=== PATIENT | female | born 2000 | race Hispanic/Latino ===

== ENCOUNTER 2020-02-07 03:34 | Inpatient (IN) | payer OTHER ==
[2020-02-07] MEDS ORDERED: Fentanyl 100 MCG/2 ML VIAL ONE ×2 (03:45→03:55)
[2020-02-07] MEDS ORDERED: Midazolam HCl 5 mg/ml Vial ONE ×3 (03:55→06:01)
[2020-02-07 03:56] LABS: INR-International Normal Ratio 1.4; PTT 37.4 sec (22.9-36.1); Prothrombin Time 17.3 sec (12.0-14.7)
[2020-02-07 03:59] LABS: BHCG - Serum Negative (NEGATIVE); Pregs Control Background? CLEAR/WHITE (CLR/WHITE); Pregs Control Bar Appear? YES (CONTROL BAR)
[2020-02-07 04:03] LABS: ALT (SGPT) 230 U/L (8-55); AST (SGOT) 227 U/L (5-30); Albumin 4.1 g/dL (3.5-5.0); Alkaline Phosphatase 80 U/L (40-100); Anion Gap 27 mmol/L (10-20); BUN (Urea Nitrogen) 10 mg/dL (8.4-21.0); Bilirubin, Total Less than 0.2 mg/dL (0.2-1.2); Calc. Creatinine Clearance 0 mL/min (70-130); Carbon Dioxide 14 mmol/L (22-29); Chloride 103 mmol/L (98-107); Estimated GFR-MDRD 51; Globulin 3.1 g/dL (2.4-3.5); Protein, Total 7.2 g/dL (6.0-8.3); Sodium 141 mmol/L (136-145)
[2020-02-07] MEDS ORDERED: Succinylcholine Chloride 20 MG/ML 10 ml SYRINGE FS ONE ×2 (04:05→06:09)
[2020-02-07 04:08] LABS: Hemoglobin 14.3 g/dL (12.0-16.0); Mean Corpuscular HGB CONC 32.8 g/dL (32.0-36.0); Mean Corpuscular Hemoglobin 28.1 pg (25.0-35.0); Mean Corpuscular Volume 85.8 fL (78.0-98.0); Mean Platelet Volume 8.4 fL (7.4-10.4); Platelet Count 303 thou/uL (130-400); RBC Distribution Width 12.5 % (11.5-14.5); Red Blood Cell (RBC) Count 5.09 mill/uL (4.00-5.20); White Blood Cell (WBC) Count 20.5 thou/uL (4.8-10.8)
[2020-02-07 04:13] LABS: Glucose 270 mg/dL (70-105)
[2020-02-07] MEDS ORDERED: fentaNYL Citrate/PF 2,000 MCG in Sodium Chloride 0.9% 60 ML IV SCH ×2 (04:15→05:00)
[2020-02-07 04:19] LABS: Acetaminophen Less than 6.0 mcg/mL (10.0-30.0); Alcohol 160 mg/dL (Less than 10); Salicylate Less than 8.0 mg/dL (15.0-30.0)
[2020-02-07 04:24] LABS: Band 7 % (5-11); Lymphocytes 38 % (28-48); MDiff Complete? YES; Monocytes 5 % (0-4); Neutrophil 45 % (31-61); Platelet Morphology Comment Appears Adequate; RBC Morphology Normal; Reactive Lymphocytes 5 % (0-10)
[2020-02-07 04:33] LABS: Bilirubin Negative (Negative); Blood, Urine 2+ (Negative); Clarity Clear (Clear); Glucose, Urine (Dipstick) 200 mg/dL (Negative); Ketone, Urine Negative (Negative); Leukocyte Negative Leu/uL (Negative); Nitrite Negative (Negative); Protein, Urine (Dipstick) 100 mg/dL (Neg-Trace); RBC/HPF 0-3 HPF (0-3); Specific Gravity, Urine 1.005 (1.002-1.036); Squamous Epithelial 0-3 HPF (0-3); Urobilinogen Normal mg/dL (Less than 2); pH, Urine 6.5 (5.0-9.0)
[2020-02-07 04:34] LABS: Bacteria/HPF 1+ HPF (None Seen)
[2020-02-07 04:35] LABS: Pregnancy Test - Urine (BHCG) Negative (Negative); Pregu Control Background? CLEAR/WHITE (CLR/WHITE); Pregu Control Bar Appear? YES (CONTROL BAR); Specific Gravity 1.005 (1.002-1.036)
[2020-02-07] MEDS ORDERED: Dextrose 50% Abboject 50 ML SYRINGE SLOW IVP PRN (04:41)
[2020-02-07] MEDS ORDERED: Ondansetron PF 4 MG/2 ML Vial IVP PRN (04:41)
[2020-02-07] MEDS ORDERED: TETANUS AND DIPHTHERIA TOX/PF 0.5 ML DISP.SYRIN IM ONE (04:41)
[2020-02-07] MEDS ORDERED: Dextrose 5% in Water 1,000 ML IV PRN (04:41)
[2020-02-07] MEDS ORDERED: Sodium Chloride 0.9% 1,000 ML IV SCH ×2 (04:45→08:00)
[2020-02-07] MEDS ORDERED: Ventilator Sedation Protocol 1 EACH FS ONE (04:46)
[2020-02-07 04:54] LABS: Amphetamine Not Detected (NotDetected); Barbiturates Screen Not Detected (NotDetected); Benzodiazepine Screen Not Detected (NotDetected); Cocaine Metabolite Screen Not Detected (NotDetected); Medtox Control Line Valid? VALID (VALID); Medtox Reader # READER 4; Methadone Not Detected (NotDetected); Methamphetamine Not Detected (NotDetected); Opiate Screen Not Detected (NotDetected); Oxycodone Screen Not Detected (NotDetected); Phencyclidine (PCP) Not Detected (NotDetected); THC/Cannabinoid Screen Detected (NotDetected); Tricyclic Screen Not Detected (NotDetected)
[2020-02-07 04:57] LABS: Actual Bicarbonate (HCO3a) 12.9 mEq/L (22-28); Analyzer IN Cardio ER; Base Excess (BEa) -15.1 mEq/L (-2.0 to +3.0); Calcium, Ionized (arterial) 1.03 mmol/L (1.12-1.30); Carboxyhemoglobin (COHb) 0.3 gm% (0.0-3.0); O2 Tension (PaO2), arterial 90.2 mmHg (80.0-100.0); Potassium - ABG Lab 4.41 mmol/L (3.70-5.30)
[2020-02-07 04:58] LABS: pH, Arterial 7.15 (7.35-7.45)
[2020-02-07] MEDS ORDERED: Boostrix 0.5 ML VIAL ONE (04:58)
[2020-02-07 04:59] LABS: Hemoglobin (Hb) 20.8 g/dL (11.4-15.4)
[2020-02-07 05:00] LABS: Puncture Site RR
[2020-02-07] MEDS ORDERED: Lorazepam 2 MG/ML VIAL SLOW IVP PRN (05:00)
[2020-02-07] MEDS ORDERED: Morphine 2 MG/ML VIAL SLOW IVP PRN (05:00)
[2020-02-07] MEDS ORDERED: Propofol BOLUS 1,000 MG/100 ML VIAL IV PRN (05:00)
[2020-02-07] MEDS ORDERED: Fentanyl BOLUS 250 ML IVPB PRN (05:00)
[2020-02-07] MEDS ORDERED: Propofol 1,000 MG/100 ML VIAL IV ONE (05:04)
[2020-02-07 05:31] LABS: Phosphorus 7.3 mg/dL (2.3-4.7)
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
[2020-02-07] MEDS ORDERED: Calcium Chloride 1 GM/10 ML Abboject SYRINGE ONE (06:26)
[2020-02-07] MEDS ORDERED: Potassium Chloride 40 MEQ in Premix Bag 1 BAG IVPB SCH (06:30)
[2020-02-07 07:08] LABS: Lactic Acid 5.8 mmol/L (0.5-2.2)
[2020-02-07 07:10] LABS: Anion Gap 20 mmol/L (10-20); BUN (Urea Nitrogen) 8 mg/dL (8.4-21.0); CK (CPK) 1164 U/L (29-168); Calc. Creatinine Clearance 0 mL/min (70-130); Calcium 7.8 mg/dL (7.8-10.44); Carbon Dioxide 14 mmol/L (22-29); Chloride 110 mmol/L (98-107); Estimated GFR-MDRD 75; Glucose 212 mg/dL (70-105); Magnesium 1.6 mg/dL (1.7-2.2); Phosphorus 3.5 mg/dL (2.3-4.7); Potassium 3.8 mmol/L (3.5-5.1); Sodium 140 mmol/L (136-145)
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
[2020-02-07 07:15] VITALS: BMI 39.7
[2020-02-07 07:17] LABS: Hemoglobin 20.2 g/dL (12.0-16.0); Mean Corpuscular HGB CONC 32.2 g/dL (32.0-36.0); Mean Corpuscular Hemoglobin 28.4 pg (25.0-35.0); Mean Platelet Volume 8.3 fL (7.4-10.4); Platelet Count 237 thou/uL (130-400); RBC Distribution Width 14.3 % (11.5-14.5); Red Blood Cell (RBC) Count 7.14 mill/uL (4.00-5.20); White Blood Cell (WBC) Count 23.2 thou/uL (4.8-10.8)
[2020-02-07 07:24] LABS: Actual Bicarbonate (HCO3a) 14.7 mEq/L (22-28); Analyzer IN Cardio ER; Base Excess (BEa) -14.2 mEq/L (-2.0 to +3.0); CO2 Tension 44.6 mmHg (35.0-45.0); Calcium, Ionized (arterial) 1.06 mmol/L (1.12-1.30); Carboxyhemoglobin (COHb) 0.3 gm% (0.0-3.0); O2 Tension (PaO2), arterial 67.3 mmHg (80.0-100.0); Potassium - ABG Lab 3.87 mmol/L (3.70-5.30)
[2020-02-07 07:25] LABS: Puncture Site ALINE; pH, Arterial 7.14 (7.35-7.45)
[2020-02-07] MEDS ORDERED: Calcium Chloride 1 GM/10 ML Abboject SYRINGE IVP SCH (07:30)
[2020-02-07] MEDS ORDERED: Sodium Bicarb 50 MEQ/50 ML Abboject 8.4% SYRINGE IVP SCH ×2 (07:30→23:59)
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
[2020-02-07 07:51] LABS: Band 31 % (5-11); Lymphocytes 9 % (28-48); MDiff Complete? YES; Monocytes 4 % (0-4); Neutrophil 54 % (31-61); Platelet Morphology Comment Appears Adequate; Reactive Lymphocytes 2 % (0-10); Vacuoles SLIGHT
[2020-02-07] MEDS ORDERED: Furosemide 40 MG/4 ML VIAL SLOW IVP SCH ×2 (08:00)
[2020-02-07] MEDS ORDERED: Midazolam HCl 2 mg/2 ml Vial SLOW IVP SCH ×2 (08:00)
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
--- NOTE | 2020-02-07 08:06 | RAD ---
EXAM: Single view of the abdomen HISTORY: OG tube placement COMPARISON: None FINDINGS: Single view of the upper abdomen shows a nonspecific, nonobstructive bowel gas pattern. An OG tube is seen with its tip in the left upper quadrant of the abdomen, likely in the stomach. No suspicious calcifications are seen. The bones are unremarkable. Diffuse hazy opacities are seen in the lungs. IMPRESSION: OG tube located in the stomach
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
[2020-02-07] MEDS: Propofol 1,000 MG/100 ML VIAL IV PRN ×3 (08:17→17:43)
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
[2020-02-07] MEDS: Magnesium 2 GM/50 ML 2 GM in Premix Bag 1 BAG IVPB SCH ×2 (08:30→10:59)
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
[2020-02-07] MEDS ORDERED: Sterile Water 10 ML ONE (10:00)
[2020-02-07] MEDS ORDERED: Vecuronium 10 MG VIAL IVP SCH (10:00)
--- NOTE | 2020-02-07 10:17 | RAD ---
PORTABLE SUPINE CHEST: Date: 02/07/2020 INDICATION: Assess central line placement. Comparison made to film from earlier today. FINDINGS/IMPRESSION: ET tube has tip just above vernon. NG tube appears adequately positioned. A central line via the left subclavian has tip overlying the SVC. There are bilateral confluent alveolar infiltrates which are unchanged from the earlier film. POS: OFF
[2020-02-07 10:55] LABS: Lactic Acid 4.7 mmol/L (0.5-2.2)
[2020-02-07] MEDS ORDERED: Sodium Chloride 0.9% 500 ML IV SCH (11:15)
[2020-02-07 11:23] LABS: Actual Bicarbonate (HCO3a) 19.5 mEq/L (22-28); Base Excess (BEa) -9.9 mEq/L (-2.0 to +3.0); CO2 Tension 54.7 mmHg (35.0-45.0); Calcium, Ionized (arterial) 1.46 mmol/L (1.12-1.30); Carboxyhemoglobin (COHb) 0.1 gm% (0.0-3.0); Potassium - ABG Lab 4.42 mmol/L (3.70-5.30)
[2020-02-07] MEDS: Sodium Bicarb 50 MEQ/50 ML Abboject 8.4% SYRINGE ONE ×2 (11:42→11:44)
[2020-02-07 11:53] LABS: O2 Tension (PaO2), arterial 49.6 mmHg (80.0-100.0); pH, Arterial 7.17 (7.35-7.45)
[2020-02-07 12:00] LABS: Hemoglobin (Hb) 21.4 g/dL (11.4-15.4); Puncture Site ALINE
[2020-02-07 12:02] LABS: ALV-art Gradient 595.025 mmHg (0-20)
[2020-02-07] MEDS: Albumin 5% 500 ML ONE ×2 (12:06→12:22)
[2020-02-07 12:10] LABS: Actual Bicarbonate (HCO3a) 24.6 mEq/L (22-28); Base Excess (BEa) -2.7 mEq/L (-2.0 to +3.0); Calcium, Ionized (arterial) 1.38 mmol/L (1.12-1.30); Carboxyhemoglobin (COHb) 0.3 gm% (0.0-3.0); Potassium - ABG Lab 4.31 mmol/L (3.70-5.30)
[2020-02-07 12:21] LABS: Mean Corpuscular HGB CONC 34.1 g/dL (32.0-36.0); Mean Corpuscular Hemoglobin 29.5 pg (25.0-35.0); Mean Corpuscular Volume 86.5 fL (78.0-98.0); Mean Platelet Volume 8.2 fL (7.4-10.4); Platelet Count 148 thou/uL (130-400); RBC Distribution Width 14.2 % (11.5-14.5); Red Blood Cell (RBC) Count 6.78 mill/uL (4.00-5.20); White Blood Cell (WBC) Count 21.7 thou/uL (4.8-10.8)
[2020-02-07] MEDS: Lactated Ringer's 1,000 ML IV SCH ×2 (12:40→20:55)
[2020-02-07 12:57] LABS: Band 66 % (5-11); Lymphocytes 3 % (28-48); MDiff Complete? YES; Metamyelocyte 3 % (0-0); Monocytes 2 % (0-4); Neutrophil 25 % (31-61); Platelet Morphology Comment Appears Adequate; Polychromasia SLIGHT = 2-3 cells (100X) (0-2/hpf); Reactive Lymphocytes 1 % (0-10)
[2020-02-07 13:01] LABS: Anion Gap 15 mmol/L (10-20); BUN (Urea Nitrogen) 11 mg/dL (8.4-21.0); Calc. Creatinine Clearance 140 mL/min (70-130); Calcium 9.9 mg/dL (7.8-10.44); Carbon Dioxide 27 mmol/L (22-29); Chloride 110 mmol/L (98-107); Estimated GFR-MDRD 66; Glucose 127 mg/dL (70-105); Magnesium 2.8 mg/dL (1.7-2.2); Phosphorus 4.7 mg/dL (2.3-4.7); Potassium 4.3 mmol/L (3.5-5.1); Sodium 148 mmol/L (136-145)
[2020-02-07 13:27] LABS: Base Excess (BEa) -3.6 mEq/L (-2.0 to +3.0); CO2 Tension 46.8 mmHg (35.0-45.0); Calcium, Ionized (arterial) 1.31 mmol/L (1.12-1.30); Carboxyhemoglobin (COHb) 0.3 gm% (0.0-3.0); Hemoglobin (Hb) 19.8 g/dL (11.4-15.4); Potassium - ABG Lab 4.14 mmol/L (3.70-5.30); pH, Arterial 7.31 (7.35-7.45)
[2020-02-07 13:36] LABS: O2 Tension (PaO2), arterial 47.8 mmHg (80.0-100.0)
[2020-02-07 13:37] LABS: Puncture Site ALINE
[2020-02-07 13:39] LABS: O2 Tension (PaO2), arterial 55.1 mmHg (80.0-100.0); Puncture Site ALINE
[2020-02-07] MEDS ORDERED: Midazolam HCl 2 mg/2 ml Vial ONE ×2 (13:41→14:58)
[2020-02-07] MEDS: Fentanyl 100 MCG/2 ML VIAL ONE ×4 (14:13→17:26)
[2020-02-07] MEDS ORDERED: EPINEPHrine 1 MG/10 ML Abboject SYRINGE ONE (14:25)
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
[2020-02-07] MEDS ORDERED: Lorazepam 2 MG/ML VIAL ONE (15:01)
[2020-02-07] MEDS ORDERED: Iopamidol 370 76% 100 ML VIAL ONE (15:21)
[2020-02-07] MEDS ORDERED: Lorazepam 2 MG/ML VIAL SLOW IVP SCH ×2 (16:00→18:30)
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
[2020-02-07] MEDS: CEFAZOLIN 2 GM in Premix Bag 1 BAG IVPB SCH ×2 (17:42→20:50)
[2020-02-07] MEDS ORDERED: levETIRAcetam In NaCl (Iso-Os) 1,000 MG in Premix Bag 1 BAG IVPB SCH (18:30)
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
[2020-02-07 20:27] LABS: Actual Bicarbonate (HCO3a) 25.5 mEq/L (22-28); Base Excess (BEa) -1.7 mEq/L (-2.0 to +3.0); CO2 Tension 51.9 mmHg (35.0-45.0); Calcium, Ionized (arterial) 1.21 mmol/L (1.12-1.30); Carboxyhemoglobin (COHb) 0.3 gm% (0.0-3.0); Hemoglobin (Hb) 16.8 g/dL (11.4-15.4); O2 Tension (PaO2), arterial 77.1 mmHg (80.0-100.0); Potassium - ABG Lab 4.39 mmol/L (3.70-5.30); pH, Arterial 7.31 (7.35-7.45)
[2020-02-07 20:30] LABS: Puncture Site A-LINE
[2020-02-07 20:31] LABS: ALV-art Gradient 571.025 mmHg (0-20)
[2020-02-07 21:03] LABS: Band 54 % (5-11); Hemoglobin 16.6 g/dL (12.0-16.0); Lymphocytes 7 % (28-48); MDiff Complete? YES; Mean Corpuscular HGB CONC 33.2 g/dL (32.0-36.0); Mean Corpuscular Hemoglobin 29.6 pg (25.0-35.0); Mean Corpuscular Volume 89.2 fL (78.0-98.0); Metamyelocyte 2 % (0-0); Monocytes 1 % (0-4); Neutrophil 36 % (31-61); Platelet Count 123 thou/uL (130-400); RBC Distribution Width 14.1 % (11.5-14.5); Red Blood Cell (RBC) Count 5.59 mill/uL (4.00-5.20); White Blood Cell (WBC) Count 27.2 thou/uL (4.8-10.8)
[2020-02-07] MEDS ORDERED: Mannitol 12.5 GM/50 ML IV SCH (21:15)
[2020-02-07] MEDS: Acetaminophen 500 MG TAB PO SCH (21:25)
[2020-02-07] MEDS ORDERED: Albumin 5% 500 ML ONE (23:25)
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
[2020-02-07 23:41] LABS: Actual Bicarbonate (HCO3a) 23.8 mEq/L (22-28); Base Excess (BEa) -4.6 mEq/L (-2.0 to +3.0); CO2 Tension 58.2 mmHg (35.0-45.0); Calcium, Ionized (arterial) 1.14 mmol/L (1.12-1.30); Carboxyhemoglobin (COHb) 0.5 gm% (0.0-3.0); Hemoglobin (Hb) 14.3 g/dL (11.4-15.4); O2 Tension (PaO2), arterial 71.6 mmHg (80.0-100.0); Potassium - ABG Lab 4.94 mmol/L (3.70-5.30)
[2020-02-07 23:43] LABS: Puncture Site A-LINE; pH, Arterial 7.23 (7.35-7.45)
[2020-02-07] MEDS ORDERED: Sodium Bicarb 50 MEQ/50 ML Abboject 8.4% SYRINGE ONE (23:48)
--- NOTE | 2020-02-08 00:44 | OP ---
DATE OF PROCEDURE: 02/07/2020 RN MIDWIFE: Tristian Moreno PA-C. PREOPERATIVE INDICATION: Measure intracranial pressure, prevent neurological deterioration. PREOPERATIVE DIAGNOSIS: Closed head injury, very poor neurological examination. POSTOPERATIVE DIAGNOSIS: Closed head injury, very poor neurological examination. PROCEDURE PERFORMED: Twist drill placement of Thuy bolt, intracranial pressure monitor. PREOPERATIVE MEDICATION: The patient on Ancef, next dose given early. DRAIN NUMBER: Zero. DRAIN TYPE: None. DESCRIPTION OF PROCEDURE: In the ICU, the procedure was performed. We removed hair from the right side of the scalp with electric clippers. We used Betadine to prep the right frontal area. We found the coronal suture in the midpupillary line and planned our incision just anterior to the coronal suture. I made this incision with a scalpel and then used a twist drill to penetrate through the skull. The dura was opened with a blunt metal probe. The Clinton bolt was attached to the skull and through the bolt we threaded the fiberoptic pressure monitor after we zeroed it with the recording device. Initial pressures were in the 50s. Mannitol was administered. We applied a sterile dressing. This was a clean case, no contamination. Job ID: [id number]
[2020-02-08 02:08] VITALS: BP 82/71
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
[2020-02-08] MEDS: Acetaminophen 500 MG TAB PO SCH (03:50)
[2020-02-08] MEDS: Lactated Ringer's 1,000 ML IV SCH (03:50)
[2020-02-08] MEDS ORDERED: Norepinephrine 8 MG/0.9% NS 250 ML ONE (04:00)
[2020-02-08 04:31] LABS: Lactic Acid 3.2 mmol/L (0.5-2.2)
[2020-02-08 04:41] LABS: Band 51 % (5-11); Hemoglobin 13.4 g/dL (12.0-16.0); Lymphocytes 18 % (28-48); MDiff Complete? YES; Mean Corpuscular HGB CONC 32.3 g/dL (32.0-36.0); Mean Corpuscular Volume 89.8 fL (78.0-98.0); Mean Platelet Volume 8.2 fL (7.4-10.4); Metamyelocyte 1 % (0-0); Monocytes 4 % (0-4); Neutrophil 26 % (31-61); Platelet Count 130 thou/uL (130-400); RBC Distribution Width 14.1 % (11.5-14.5); Red Blood Cell (RBC) Count 4.62 mill/uL (4.00-5.20); White Blood Cell (WBC) Count 19.9 thou/uL (4.8-10.8)
[2020-02-08 04:48] LABS: Anion Gap 16 mmol/L (10-20); BUN (Urea Nitrogen) 17 mg/dL (8.4-21.0); CK (CPK) 663 U/L (29-168); Calc. Creatinine Clearance 92 mL/min (70-130); Calcium 8.8 mg/dL (7.8-10.44); Carbon Dioxide 30 mmol/L (22-29); Chloride 107 mmol/L (98-107); Estimated GFR-MDRD 41; Glucose 112 mg/dL (70-105); Magnesium 2.2 mg/dL (1.7-2.2); Phosphorus 5.3 mg/dL (2.3-4.7); Potassium 4.6 mmol/L (3.5-5.1); Sodium 148 mmol/L (136-145)
--- NOTE | 2020-02-08 10:13 | RAD ---
XR Chest 1 View Portable History: Intubated patient Comparison: Radiograph prior day Findings: Enteric tube tip below diaphragm although out of field of view. Left subclavian central micha ous catheter tip inferior SVC. Slight improvement upper lobe lung aeration. Small effusions. Endotracheal tube tip at the clavicular level. Impression: Slight improved upper lobe lung aeration.
[2020-02-08 12:00] LABS: SARS-CoV-2 MS2 Positive; SARS-CoV-2 N Gene Negative; SARS-CoV-2 S Gene Negative; SARS-CoV-2 by NAA Not Detected (NotDetected); SARS-CoV-2 orf1ab Negative
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
== END 2020-02-08 04:05 | disposition expired | DRG 23 ==
LOC: EDBD 03:34 → ERS 03:34 → CCU 04:41
PROVIDERS: ADMIT Specialist; ATTEND Specialist
PROC: 00H032Z Insertion of Monitoring Device into Brain, Percutaneous Approach (ICD-10-PCS; principal; 2020-02-07)
PROC: 4A103BD Monitoring of Intracranial Pressure, Percutaneous Approach (ICD-10-PCS; 2020-02-07)
PROC: 0BH17EZ Insertion of Endotracheal Airway into Trachea, Via Natural or Artificial Opening (ICD-10-PCS; 2020-02-07)
PROC: 5A1935Z Respiratory Ventilation, Less than 24 Consecutive Hours (ICD-10-PCS; 2020-02-07)
PROC: 3E033XZ Introduction of Vasopressor into Peripheral Vein, Percutaneous Approach (ICD-10-PCS; 2020-02-07)
PROC: 0HQ0XZZ Repair Scalp Skin, External Approach (ICD-10-PCS; 2020-02-07)
PROC: 03HB33Z Insertion of Infusion Device into Right Radial Artery, Percutaneous Approach (ICD-10-PCS; 2020-02-07)
PROC: 30233L1 Transfusion of Nonautologous Fresh Plasma into Peripheral Vein, Percutaneous Approach (ICD-10-PCS; 2020-02-07)
PROC: 30233N1 Transfusion of Nonautologous Red Blood Cells into Peripheral Vein, Percutaneous Approach (ICD-10-PCS; 2020-02-07)
PROC: 30233M1 Transfusion of Nonautologous Plasma Cryoprecipitate into Peripheral Vein, Percutaneous Approach (ICD-10-PCS; 2020-02-07)
PROC: 30233K1 Transfusion of Nonautologous Frozen Plasma into Peripheral Vein, Percutaneous Approach (ICD-10-PCS; 2020-02-07)
DX: S06.6X9A Traumatic subarachnoid hemorrhage with loss of consciousness of unspecified duration, initial encounter (principal); G93.6 Cerebral edema; J80 Acute respiratory distress syndrome; S12.100A Unspecified displaced fracture of second cervical vertebra, initial encounter for closed fracture; S12.500A Unspecified displaced fracture of sixth cervical vertebra, initial encounter for closed fracture; G93.1 Anoxic brain damage, not elsewhere classified; R40.2312 Coma scale, best motor response, none, at arrival to emergency department; R40.2112 Coma scale, eyes open, never, at arrival to emergency department; R40.2212 Coma scale, best verbal response, none, at arrival to emergency department; V89.2XXA Person injured in unspecified motor-vehicle accident, traffic, initial encounter; I46.8 Cardiac arrest due to other underlying condition; F10.129 Alcohol abuse with intoxication, unspecified; Y90.6 Blood alcohol level of 120-199 mg/100 ml; S02.19XA Other fracture of base of skull, initial encounter for closed fracture; S02.411A LeFort I fracture, initial encounter for closed fracture; S02.0XXA Fracture of vault of skull, initial encounter for closed fracture; G93.89 Other specified disorders of brain; I49.01 Ventricular fibrillation
CPT/HCPCS: 12002; 31500; 31624; 36415; 36416; 36430; 36556; 51702; 70450; 70486; 70498; 70551; 71045; 71260; 72125; 72141; 72170; 74018; 74177; 80048; 80053; 80306; 80307; 81003; 81015; 81025; 82533; 82550; 82805; 83605; 83735; 83930; 84100; 84295; 84703; 85025; 85610; 85730; 86850; 86900; 86901; 87040; 87635; 90471; 90715; 93005; 94002; 94003; 96365; 96366; 96367; 96375; 96376; 99195; 99292; G0390; J0171; J0690; J1940; J1953; J2060; J2150; J2250; J2270; J2704; J3010; J3475; J3480; J3490; P9016; P9045; P9048; P9059; Q9967; U0003